=== PATIENT | female | born 1985 | race Caucasian/White ===

== ENCOUNTER 2016-08-29 20:40 | Emergency (ER) | payer OTHER ==
[~2016-08-29 20:40] MED LIST: ADDERALL 30 MG30 M1 PO; ADDERALL PO; BACTRIM DS TABL1 TA1 PO; BENADRYL PO; CELEXA20 MG PO; DESYREL50 MG PO; ENABLEX7.5 MG PO; FLAGYL PO; KEFLEX PO; NITROFURANTOIN50 M1 PO; NO MEDICATIONS; OTC NASAL SPRAY; PENICILLIN V P500 MG PO; PHENERGAN25 MG PO; PRENATAL1 TA1 PO; PREVACID PO; TYLENOL #3 PO; ULTRAM PO; VOLTAREN50 MG PO; VOLTAREN75 MG PO; ZOFRAN PO; ZYRTEC10 M2 PO
== END 2016-08-29 20:51 | disposition home or self-care (01) ==
LOC: CFTX 20:40
DX: L02.414 Cutaneous abscess of left upper limb (principal); F17.210 Nicotine dependence, cigarettes, uncomplicated
CPT/HCPCS: 10060; 99283